=== PATIENT | female | born 1985 | race American Indian/Alaskan Native ===

== ENCOUNTER 2016-11-28 19:10 | Outpatient (CLI) | payer MEDICAID ==
[2016-12-02 00:45] VITALS: BP 121/70
== END 2016-11-28 23:00 | disposition home or self-care (01) ==
LOC: TRG 19:10
PROVIDERS: ATTEND Obstetrics & Gynecology
DX: O48.0 Post-term pregnancy (principal); Z3A.40 40 weeks gestation of pregnancy

== ENCOUNTER 2016-12-01 12:07 | Inpatient (IN) | payer MEDICAID ==
[2016-12-01] MEDS ORDERED: ZOFRAN IV PRN (14:09)
[2016-12-01] MEDS ORDERED: XYLOCAINE 2% INFILTRATI ONE (14:09)
[2016-12-01] MEDS ORDERED: STADOL IV PRN (14:09)
[2016-12-01] MEDS ORDERED: SUBLIMAZE IV PRN (14:09)
[2016-12-01] MEDS ORDERED: POLYCILLIN/NS 2 GM/100 ML 2 GM/100 ML BAG IV ONE (14:09)
[2016-12-01] MEDS ORDERED: ePHEDrine SULFATE IV PRN ×2 (14:19→22:42)
[2016-12-01] MEDS ORDERED: BRETHINE SUB-Q PRN (14:19)
[2016-12-01] MEDS ORDERED: BRETHINE IVP PRN (14:19)
[2016-12-01] MEDS ORDERED: MINERAL OIL PO PRN (14:20)
[2016-12-01 14:55] LABS: Hemoglobin 10.2 gm/dl (10.1-14.3); Mean Corpuscular HGB Conc 33 % (30-34); Mean Corpuscular Volume 74 fl (79-97); Platelet Count 177 K/mm3 (140-440); Red Blood Count 4.18 M/mm3 (3.65-5.03); Red Cell Distribution Width 17.3 % (13.2-15.2)
[2016-12-01 14:56] LABS: Mean Corpuscular Hemoglobin 24 pg (28-32)
[2016-12-01] MEDS ORDERED: PITOCin/NS 20 UNIT/1000ML DRIP 20 UNITS/1,000 ML BAG IV SCH (15:00)
[2016-12-01] MEDS ORDERED: PITOCin/NS 30 UNIT/500ML 30 UNITS/500 ML BAG IV SCH ×2 (15:00)
[2016-12-01] MEDS: LACTATED RINGERS 1,000 ML IV SCH ×2 (15:10→21:24)
[2016-12-01] MEDS ORDERED: POLYCILLIN/NS 1 GM/50 ML 1 GM/50 ML BAG IV SCH (18:15)
--- NOTE | 2016-12-01 21:16 | History and Physical Report ---
History of Present Illness Date of examination: 12/01/16 Date of admission: 12/01/16 12:07 Chief complaint: I'm here for my induction History of present illness: Patient is a 31 year old who presents at 40.4 weeks for post dates induction of labor. Past History Past Medical History: no pertinent history Past Surgical History: no surgical history Social history: - Obstetrical History Expected Date of Delivery: 11/27/16 Actual Gestation: 40 Week(s) 4 Day(s) : 7 Para: 4 Number of Living Children: 4 Medications and Allergies Allergies Allergy/AdvReac Type Severity Reaction Status Date / Time Sulfa (Sulfonamide AdvReac Mild Unknown Verified 12/01/16 13:16 Antibiotics) Active Meds: Active Medications Butorphanol Tartrate (Stadol) 2 mg IV Q2H PRN PRN Reason: Pain , Severe (7-10) Fentanyl (Sublimaze) 100 mcg IV Q2H PRN PRN Reason: Labor Pain Ampicillin Sodium (Polycillin/Ns 1 Gm/50 Ml) 1 gm in 50 mls @ 100 mls/hr IV Q4H MARCY PRN Reason: Protocol Last Admin: 12/01/16 19:10 Dose: 100 mls/hr Lactated Ringer's (Lactated Ringers) 1,000 mls @ 125 mls/hr IV DIRECT MARCY Last Admin: 12/01/16 15:10 Dose: 125 mls/hr Oxytocin/Sodium Chloride (Pitocin/Ns 20 Unit/1000ml Drip) 20 units in 1,000 mls @ 125 mls/hr IV DIRECT MARCY Oxytocin/Sodium Chloride (Pitocin/Ns 30 Unit/500ml) 30 units in 500 mls @ 1 mls /hr IV TITR MARCY; 1 MILLIUNITS/MIN PRN Reason: Protocol Oxytocin/Sodium Chloride (Pitocin/Ns 30 Unit/500ml) 30 units in 500 mls @ 4 mls /hr IV TITR MARCY PRN Reason: Protocol Last Titration: 12/01/16 21:01 Dose: 14 ml/hr, 14 mls/hr Mineral Oil (Mineral Oil) 30 ml PO QHS PRN PRN Reason: Constipation Ondansetron HCl (Zofran) 4 mg IV Q8H PRN PRN Reason: Nausea And Vomiting Review of Systems All systems: negative Genitourinary: contractions - Vital Signs Vital signs: Vital Signs Pulse BP 78 115/68 12/01/16 12:37 12/01/16 12:37 Temp Pulse Resp BP Pulse Ox 98.1 F 83 18 111/72 12/01/16 19:28 12/01/16 19:28 12/01/16 19:28 12/01/16 19:28 - Physical Exam Breasts: Positive: deferred Cardiovascular: Regular rate, Normal S1, Normal S2 Lungs: Positive: Clear to auscultation, Normal air movement Abdomen: Positive: normal appearance, soft, normal bowel sounds Genitourinary (Female): Positive: normal external genitalia, normal perenium Vulva: both: normal Vagina: Positive: normal moisture Uterus: Positive: normal size, normal contour - Obstetrical FHR: auscultation normal Cervical Dilatation: 2.5 Cervical Effacement Percentage: 70 station: -3 Uterine Contraction Pattern: Irregular Uterine Tone Measurement Phase: Contraction Uterine Contraction Intensity: Moderate Results Result Diagrams: 12/01/16 14:33 Abnormal lab results 12/01/16 Range/Units 14:33 MCV 74 L (79-97) fl MCH 24 L (28-32) pg RDW 17.3 H (13.2-15.2) % All other labs normal. Assessment and Plan IUP at 40.4 weeks here for post dates induction of labor. Admit to L&D. AROM when able. Treat for GBS. Anticipate .
[2016-12-01] MEDS ORDERED: ePHEDrine SULFATE ONE (21:26)
[2016-12-01] MEDS ORDERED: NARCAN 2 MG/2 ML IV PRN (22:42)
--- NOTE | 2016-12-01 22:42 | Anesthesia Consultation ---
Anesthesia Consult and Med Hx Date of service: 12/01/16 - Airway Anesthetic Teeth Evaluation: Good ROM Head & Neck: Adequate Mental/Hyoid Distance: Adequate Mallampati Class: Class II Intubation Access Assessment: Good - Pulmonary Exam CTA: Yes - Cardiac Exam Cardiac Exam: No Murmur - Pre-Operative Health Status ASA Pre-Surgery Classification: ASA2 Proposed Anesthetic Plan: Epidural - Pulmonary Hx Asthma: No COPD: No Hx Pneumonia: No - Cardiovascular System Hx Hypertension: No - Central Nervous System Hx Seizures: No Hx Psychiatric Problems: No - Endocrine Hx Renal Disease: No Hx End Stage Renal Disease: No Hx Hypothyroidism: No Hx Hyperthyroidism: No - Hematic Hx Anemia: Yes Hx Sickle Cell Disease: No - Other Systems Hx Alcohol Use: No
[2016-12-01] MEDS ORDERED: fentaNYL-BUPIV 2 MCG/ML-0.125% 200 MCG/100 ML BAG EPIDURAL SCH (23:00)
[2016-12-02] MEDS ORDERED: MOTRIN PO PRN (00:08)
--- NOTE | 2016-12-02 00:08 | Procedure Note ---
OB Delivery Note - Delivery Date of Delivery: 12/01/16 Surgeon: MELANY PUENTE Estimated blood loss: 200cc - Vaginal Delivery presentation: vertex Delivery position: OA Intrapartum events: none Delivery induction: AROM Delivery monitor: external FHT, external uterine Route of delivery: Delivery placenta: spontaneous Delivery cord: true knot, 3 umbilical vessels Episiotomy: none Delivery laceration: none Anesthesia: epidural Delivery comments: Viable female delivered over intact perineum with 3vc and true knot. Mouth and nose suctioned on field. had spontaneous and vigorous cry. She was placed on maternal abdomen. Cord clamped and cut when done pulsating. Placenta delivered spontaneously and intact with 3vc. No lacerations. Excellent hemostasis. Patient tolerated procedure well. - Infant A at 1 minute: 8 at 5 minutes: 9 Gender: Female (7 pounds 5 ounces 3135grams)
[2016-12-02] MEDS ORDERED: TUCKS PAD TP PRN (02:12)
[2016-12-02] MEDS ORDERED: PHENERGAN PR PRN (02:12)
[2016-12-02] MEDS ORDERED: LANSINOH TP PRN (02:12)
[2016-12-02] MEDS ORDERED: MILK OF MAGNESIA PO PRN (02:12)
[2016-12-02] MEDS ORDERED: NORCO 5/325 PO PRN (02:12)
[2016-12-02] MEDS ORDERED: ZOFRAN IV PRN (02:12)
[2016-12-02] MEDS ORDERED: DULCOLAX PR PRN (02:12)
[2016-12-02] MEDS ORDERED: BENADRYL PO PRN (02:12)
[2016-12-02] MEDS ORDERED: TYLENOL PO PRN (02:12)
[2016-12-02] MEDS ORDERED: PHENERGAN PO PRN (02:12)
[2016-12-02] MEDS ORDERED: SODIUM CHLORIDE FLUSH SYRINGE 10 ML IV PRN (02:12)
[2016-12-02] MEDS: MOTRIN PO SCH ×3 (05:44→23:16)
[2016-12-02] MEDS ORDERED: BOOSTRIX IM ONE (06:00)
--- NOTE | 2016-12-02 10:48 | Progress Note ---
Subjective Date of service: 12/02/16 Interval history: 1st day after normal vaginal delivery Patient is in the bed, comfortable. pain is well controlled with pain meds. Ambulated well. No residual neurological deficit. No anesthesia complications Objective - Constitutional Vitals: Vital Signs - 12hr 12/02/16 12/02/16 02:30 08:53 Temperature 98 F 97.9 F Pulse Rate 80 74 Respiratory 18 18 Rate Blood Pressure 117/66 115/67 - Labs CBC & Chem 7: 12/01/16 14:33 Labs: Abnormal lab results 12/01/16 Range/Units 14:33 MCV 74 L (79-97) fl MCH 24 L (28-32) pg RDW 17.3 H (13.2-15.2) %
[2016-12-02] MEDS: COLACE PO SCH ×2 (10:52→22:00)
[2016-12-02] MEDS: PRENATAL VITAMIN PO SCH (10:52)
--- NOTE | 2016-12-02 11:45 | Progress Note ---
Assessment and Plan PPD 1 s/p . Doing well. Continue routine care. Plan for discharge in am Subjective - Subjective Date of service: 12/02/16 Interval history: Patient is a 31 year old who presents at 40.4 weeks for post dates induction of labor. Patient reports: appetite normal, voiding normally, pain well controlled, ambulating normally : doing well Objective - Vital Signs Latest vital signs: Vital Signs Temp Pulse Resp BP 12/02/16 08:53 97.9 F 74 18 115/67 12/02/16 02:30 98 F 80 18 117/66 12/01/16 19:28 98.1 F 83 18 111/72 12/01/16 13:45 82 112/70 12/01/16 13:16 98.8 F 78 18 115/68 12/01/16 12:37 78 115/68 Intake and Output 12/01/16 12/02/16 12/02/16 22:59 06:59 14:59 Intake Total 1000 365 Output Total 400 200 Balance 1000 -35 -200 Intake: IV 1000 125 Lactated Ringers 1,000 ml 1000 @ 125 mls/hr IV DIRECT MARCY Rx#:[id number] PITOCin/NS 20 UNIT/1000ML 125 DRIP 20 units In 1,000 ml @ 125 mls/hr IV DIRECT MARCY Rx#:[id number] Oral 240 Output: Urine 400 200 Indwelling Catheter 400 Void 200 Other: Total, Intake Amount 240 Total, Output Amount 400 200 # Voids Void 2 Estimated Blood Loss 200 - Exam Breasts: Present: deferred, tender Cardiovascular: Present: Regular rate, Normal S1 Lungs: Present: Clear to auscultation Abdomen: Present: normal appearance, soft, normal bowel sounds Vulva: both: normal Uterus: Present: normal Extremities: Present: normal - Labs Labs: Abnormal lab results 12/01/16 Range/Units 14:33 MCV 74 L (79-97) fl MCH 24 L (28-32) pg RDW 17.3 H (13.2-15.2) %
[2016-12-02 14:04] LABS: Hematocrit 29.2 % (30.3-42.9); Hemoglobin 9.5 gm/dl (10.1-14.3)
[2016-12-03] MEDS: MOTRIN PO SCH ×2 (05:45→11:31)
--- NOTE | 2016-12-03 10:25 | Discharge Summary ---
Providers - Providers Date of Admission: 12/01/16 12:07 Date of discharge: 12/03/16 Attending physician: MELANY PUENTE Primary care physician: MELANY PUENTE Hospitalization Reason for admission: induction of labor Delivery: Laceration: none Other procedures: none Discharge diagnosis: IUP at term delivered baby: female Condition at discharge: Good Disposition: DC-01 TO HOME OR SELFCARE Plan - Discharge Medications Prescriptions: HYDROcodone/APAP 5-325 [[place] 5/325] 1 each PO Q6HR PRN #15 tablet PRN Reason: Pain Ibuprofen [Motrin] 800 mg PO Q8HR PRN #40 tablet PRN Reason: Pain - Provider Discharge Summary Activity: routine, no sex for 6 weeks, no heavy lifting 4 weeks, no strenuous exercise Diet: routine Instructions: routine Additional instructions: [] Smoking cessation referral if applicable(refer to patient education folder for contact #) [] Refer to [facility]'s [facility] Booklet Call your doctor immediately for: * Fever > 100.5 * Heavy vaginal bleeding ( >1 pad per hour) * Severe persistent headache * Shortness of breath * Reddened, hot, painful area to leg or breast * Drainage or odor from incision. * Keep incision clean and dry at all times and follow doctor's instructions regarding bathing/showering - Follow up plan Follow up: MELANY PUENTE MD [Primary Care Provider] - 6 Weeks
[2016-12-03] MEDS: PRENATAL VITAMIN PO SCH (11:31)
[2016-12-03] MEDS: COLACE PO SCH (11:39)
[2016-12-03 14:14] VITALS: BP 110/62
== END 2016-12-03 13:59 | disposition home or self-care (01) | DRG 775 ==
LOC: LD 12:07 → OB 12-02 02:06
PROVIDERS: ADMIT Obstetrics & Gynecology; ATTEND Obstetrics & Gynecology
PROC: 10E0XZZ Delivery of Products of Conception, External Approach (ICD-10-PCS; principal; 2016-12-01)
PROC: 10907ZC Drainage of Amniotic Fluid, Therapeutic from Products of Conception, Via Natural or Artificial Opening (ICD-10-PCS; 2016-12-01)
PROC: 00HU33Z Insertion of Infusion Device into Spinal Canal, Percutaneous Approach (ICD-10-PCS; 2016-12-01)
PROC: 3E0R3CZ (ICD-10-PCS; 2016-12-01)
DX: O48.0 Post-term pregnancy (principal); O69.2XX0 Labor and delivery complicated by other cord entanglement, with compression, not applicable or unspecified; Z3A.40 40 weeks gestation of pregnancy; Z37.0 Single live birth; Z88.2 Allergy status to sulfonamides
CPT/HCPCS: 36415; 85014; 85018; 85027; 86850; 86900; 86901; 90471; 90715; 99211; A6250; G0463; J0290; J2405; J2590; J7120; Q0169

== ENCOUNTER 2016-12-30 05:42 | Day surgery (SDC) | payer MEDICAID ==
[2016-12-30] MEDS ORDERED: REGLAN PO NR (06:00)
[2016-12-30] MEDS ORDERED: PEPCID PO NR (06:00)
[2016-12-30] MEDS ORDERED: VERSED IV NR (06:00)
[2016-12-30] MEDS: LACTATED RINGERS 1,000 ML IV SCH ×2 (06:55→13:22)
[2016-12-30] MEDS ORDERED: ZEMURON IV ONE (07:08)
[2016-12-30] MEDS ORDERED: XYLOCAINE MPF 2% ONE (07:08)
[2016-12-30] MEDS ORDERED: DECADRON ONE (07:08)
[2016-12-30] MEDS ORDERED: ZOFRAN ONE (07:08)
[2016-12-30] MEDS ORDERED: SUBLIMAZE ONE (07:09)
[2016-12-30] MEDS ORDERED: DIPRIVAN 10 MG/ML IV ONE (07:09)
[2016-12-30] MEDS ORDERED: ROBINUL ONE ×2 (07:11)
[2016-12-30] MEDS ORDERED: NEOSTIGMINE ONE (07:11)
[2016-12-30] MEDS ORDERED: DILAUDID IV PRN (07:13)
--- NOTE | 2016-12-30 07:13 | Anesthesia Day of Surgery ---
Anesthesia Day of Surgery - Day of Surgery Patient Examined: Yes Patient H&P Reviewed: Yes Patient is NPO: Yes
--- NOTE | 2016-12-30 07:13 | Anesthesia Consultation ---
Anesthesia Consult and Med Hx Date of service: 12/30/16 - Airway Anesthetic Teeth Evaluation: Good ROM Head & Neck: Adequate Mental/Hyoid Distance: Adequate Mallampati Class: Class II Intubation Access Assessment: Probably Good - Pulmonary Exam CTA: Yes - Cardiac Exam Cardiac Exam: RRR - Pre-Operative Health Status ASA Pre-Surgery Classification: ASA1 Proposed Anesthetic Plan: General - Pulmonary Hx Smoking: No Hx Asthma: No COPD: No Hx Pneumonia: No - Cardiovascular System Hx Hypertension: No Hx Cardia Arrhythmia: Yes (episode of SVT in 2013) - Central Nervous System Hx Seizures: No Hx Psychiatric Problems: No - Endocrine Hx Renal Disease: No Hx End Stage Renal Disease: No Hx Hypothyroidism: No Hx Hyperthyroidism: No - Hematic Hx Anemia: Yes Hx Sickle Cell Disease: No - Other Systems Hx Alcohol Use: No Hx Cancer: No
[2016-12-30] MEDS ORDERED: MARCAINE 0.25% INFILTRATI ONE ×2 (07:20→08:17)
[2016-12-30] MEDS ORDERED: ANCEF/STERILE WATER 2 GM/20 ML IV NR (07:27)
[2016-12-30 07:32] LABS: Hematocrit 36.6 % (30.3-42.9); Hemoglobin 11.7 gm/dl (10.1-14.3)
--- NOTE | 2016-12-30 07:42 | Short Stay Summary ---
Short Stay Documentation Date of service: 12/30/16 Narrative H&P: Patient is a 31 year old who presents approximately 3 weeks post for elective sterilzation. She has no known medical conditions. Consents have been signed and are on the chart - History Principal diagnosis: Elective sterilization H&P: obtained from office Past Medical History: No medical history Past Surgical History: No surgical history Social history: - Allergies and Medications Current Medications: Allergies Sulfa (Sulfonamide Antibiotics) Adverse Reaction (Mild, Verified 12/28/16 07:57) increased BP, HR Hypertension, Tachycardia Home Medications Medication Instructions Recorded Confirmed Last Taken Type No Known Home Medications [No 12/28/16 12/28/16 Unknown History Reported Home Medications] Active Medications Cefazolin Sodium (Ancef/Sterile Water 2 Gm/20 Ml) 2 gm IV PREOP NR Stop: 12/30/16 23:59 Famotidine (Pepcid) 20 mg PO PREOP NR Stop: 12/30/16 23:59 Last Admin: 12/30/16 07:06 Dose: 20 mg Hydromorphone HCl (Dilaudid) 0.5 mg IV Q10MIN PRN PRN Reason: Pain , Severe (7-10) Stop: 12/30/16 15:00 Lactated Ringer's (Lactated Ringers) 1,000 mls @ 75 mls/hr IV DIRECT MARCY Stop: 12/30/16 23:59 Last Admin: 12/30/16 06:55 Dose: 75 mls/hr Metoclopramide HCl (Reglan) 10 mg PO PREOP NR Stop: 12/30/16 23:59 Last Admin: 12/30/16 07:06 Dose: 10 mg Midazolam HCl (Versed) 2 mg IV PREOP NR Stop: 12/30/16 23:59 Last Admin: 12/30/16 07:06 Dose: 2 mg Ondansetron HCl (Zofran) 4 mg IV ONCE PRN PRN Reason: Nausea And Vomiting Stop: 12/30/16 08:01 - Physical exam General appearance: no acute distress Integumentary: no rash, no growths Lungs: Clear to auscultation, Normal air movement Breasts: deferred Heart: Regular rate, Normal S1, Normal S2 Gastrointestinal: normal, normoactive bowel sounds Female Genitourinary: normal Rectal Exam: deferred Extremities: no ischemia, No edema - Brief post op/procedure progress note Date of procedure: 12/30/16 Pre-op diagnosis: Undesired Fertility Post-op diagnosis: same Procedure: Laparoscopic Bilateral Salpingectomy Anesthesia: GETA Findings: Normal uterus, tubes and ovaries Surgeon: MELANY PUENTE Estimated blood loss: 50-100ml Pathology: list (right and left fallopian tubes) Specimen disposition: to lab Condition: stable - Disposition Condition at discharge: Good Disposition: DC-01 TO HOME OR SELFCARE Short Stay Discharge Plan Activity: no restrictions Diet: regular Follow up with: MELANY PUENTE MD [Staff Physician] - 7 Days Prescriptions: HYDROcodone/APAP 5-325 [[place] 5/325] 2 each PO Q6HR PRN #40 tablet PRN Reason: Pain Ibuprofen [Motrin] 600 mg PO Q6H PRN #30 tablet PRN Reason: Pain
[2016-12-30] MEDS ORDERED: ZOFRAN IV PRN (08:00)
[2016-12-30] MEDS ORDERED: NACL 0.9% IR ONE (08:16)
[2016-12-30] MEDS ORDERED: DILAUDID ONE (08:16)
[2016-12-30] MEDS ORDERED: TORADOL ONE (08:24)
--- NOTE | 2016-12-30 08:54 | Operative Report ---
Operative Report Operative Report: Preoperative diagnosis: Undesired fertility Postoperative diagnosis: Same Procedure: Bilateral laparoscopic salpingectomy Surgeon: Gi Irwin Anesthesia: General EBL: Minimal IV fluids: [900] Urine output:[100] Findings:[Normal uterus tubes and ovaries] Specimens: Portion of right and left fallopian tube Complications: None The patient was properly identified as herself. She was then taken to the OR with IV running and in place. She was given general anesthesia without difficulty. She was placed in a dorsal lithotomy position. She was then prepped and draped in normal sterile fashion. Attention was turned to the patient's vagina. Her bladder was drained of clear urine with a red rubber catheter. The speculum was then placed the patient's vagina. The cervix was visualized and grasped with tenaculum. The acorn cannula was then inserted. The surgeon's gloves were changed and attention turned to the patient's abdomen. A small incision was made in the patient's umbilicus incision a 5 mm trocar was placed. The laparoscope confirmed intra-abdominal placement. The abdomen was insufflated with CO2 gas to approximately 25 mmHg. Both fallopian tubes were identified. With direct visualization a second trocar was placed through an incision in the left lower quadrant. Both tubes were found and followed out to the fimbriated ends. Each tube was cauterized at the portion nearest the cornua, then cauterized across the broad ligament until the tube was completely detached. There was excellent hemostasis at the end of this portion of the procedure. Each tube was handed off for pathology. At this point the abdomen was deflated. All instruments were then removed from the abdomen. The incisions were then closed with 4-0 Monocryl. The incisions were also injected with quarter percent Marcaine. The patient tolerated the procedure well she was then awakened and taken recovery in stable condition. Sponge needle and instrument counts were correct 2.
[2016-12-30] MEDS ORDERED: ZOFRAN IV ONE (10:45)
[2016-12-30] MEDS ORDERED: TRANSDERM-SCOP TD ONE (10:45)
[2016-12-30] MEDS ORDERED: PHENERGAN PR SCH (13:28)
--- NOTE | 2016-12-30 13:28 | Post Anesthesia Evaluation ---
- Post Anesthesia Evaluation Patient Participated: Yes Airway Patent: Yes Stable Respiratory Function: Yes Nausea/Vomiting: No Temp > 96.8F: Yes Pain Manageable: Yes Adequeate Hydration: Yes Anesthesia Complications: No Block Receding Appropriately: Not Applicable Patient on Ventilator: No
[2016-12-30 18:06] VITALS: BP 102/69
== END 2016-12-30 15:40 | disposition home or self-care (01) ==
LOC: OR 05:42
PROVIDERS: ATTEND Obstetrics & Gynecology
DX: Z30.2 Encounter for sterilization (principal); D64.9 Anemia, unspecified; Z88.2 Allergy status to sulfonamides; Z86.79 Personal history of other diseases of the circulatory system
CPT/HCPCS: 36415; 58661; 81025; 85014; 85018; 88302; J0690; J1100; J1170; J1885; J2250; J2405; J2704; J2710; J3010; J7120